=== PATIENT | female | born 1980 | race Two or more races ===

== ENCOUNTER → 2016-04-03 | Emergency (ER) | payer OTHER ==
[~2016-04-03] VITALS: Ht 160 cm; Wt 66.2 kg
[~2016-04-03] MED LIST: ASPIRIN 81 MG TAB.CHEW ONE; ASPIRIN 81 MG TAB.CHEW PO ONE
[2016-04-03 15:44] LABS: BASOPHILS # (AUTO) 0.1 /CMM (0.0-0.2); BASOPHILS % (AUTO) 0.9 % (0.0-2.0); DIFF TOTAL % 100 %; EOSINOPHILS # (AUTO) 0.2 /CMM (0.0-0.7); HEMATOCRIT 37 % (33-45); HEMOGLOBIN 12.4 g/dL (11.5-14.8); LYMPHOCYTES % (AUTO) 24.9 % (20.0-44.0); MEAN CORPUSCULAR HEMOGLOBIN 30 PG (26.0-33.0); MEAN CORPUSCULAR HGB CONC 34 g/dl (31.0-36.0); MEAN CORPUSCULAR VOLUME 88 fL (82-100); MONOCYTES # (AUTO) 0.5 /CMM (0.1-1.30); MONOCYTES % (AUTO) 5.8 % (2.0-12.0); NEUTROPHILS # (AUTO) 5.3 /CMM (1.8-8.9); NEUTROPHILS % (AUTO) 66.4 % (43.0-81.0); PLATELET COUNT (AUTO) 274 /CMM (150-450); RED BLOOD CELL COUNT(AUTO) 4.19 MIL/uL (4.0-5.2); WHITE BLOOD COUNT (AUTO) 8.1 K/uL (4.3-11.0)
[2016-04-03 15:55] LABS: ANION GAP 13 (5-14); CALCIUM, SERUM 9.1 mg/dL (8.5-10.1); CARBON DIOXIDE 26 mmol/L (21-32); CHLORIDE 104 mmol/L (98-107); CREATININE 0.8 mg/dL (0.6-1.3); GFR 83 mL/min (>60); GLUCOSE 100 mg/dL (74-106); SODIUM SERUM 139 mmol/L (136-145); UREA NITROGEN, BLOOD 16 mg/dL (7-18)
[2016-04-03 15:58] LABS: INR 0.94 (0.87-1.13); PROTHROMBIN TIME 9.9 SECS (9.5-12.7)
[2016-04-03 16:05] LABS: TROPONIN I < 0.017 ng/mL (0.00-0.056)
[2016-04-03 18:04] VITALS: BP 112/74
== END | disposition home or self-care (01) ==
LOC: ER 14:43
DX: R07.9 Chest pain, unspecified (principal)
CPT/HCPCS: 36415; 71010; 80048; 84484; 85025; 85378; 85730; 93005; 99285; A4606; Z7610